=== PATIENT | male | born 1980 | race Caucasian/White ===

== ENCOUNTER 2021-01-02 14:00 | Emergency (ER) | payer MEDICARE, OTHER, SELFPAY ==
--- NOTE | 2021-01-02 14:05 | ED.BACK ---
HPI - Back Pain/Injury General Chief Complaint: Back Pain/Injury Stated Complaint: Back Pain Time Seen by Provider: 01/02/21 14:24 Source: patient and RN notes reviewed Mode of arrival: ambulatory Limitations: no limitations History of Present Illness HPI Narrative: 40-year-old male presents concern for right low back pain. Reports when he threw out trash yesterday he felt a twinge in his back and has been having pain since then. Reports dull ache with rest that increases with certain movements such as twisting. Reports pain radiates down the leg. Reports he is used icy hot, heat, ibuprofen, Tylenol, methocarbamol with no relief. Reports he takes methocarbamol daily for other problems. He denies loss of bowel or bladder function, perianal anesthesia, abdominal pain, fever, weakness in any extremity. He reports a history of a laminectomy in 2011. MD elicited complaint: back pain Related Data Home Medications Medication Instructions Recorded Confirmed methocarbamol 500 mg tablet 500 mg PO BID tablet 11/26/20 01/02/21 minocycline 100 mg capsule 100 mg PO BID 11/26/20 01/02/21 prazosin 2 mg capsule 2 mg PO QPM 11/26/20 01/02/21 ropinirole 2 mg tablet 2 mg PO QPM tablet 11/26/20 01/02/21 tadalafil 20 mg tablet 20 mg PO DAILY PRN 11/26/20 01/02/21 testosterone cypionate 200 mg/mL 200 mg IM ONCE 11/26/20 01/02/21 intramuscular oil zolpidem 10 mg tablet 10 mg PO QHS PRN 11/26/20 01/02/21 Allergies Allergy/AdvReac Type Severity Reaction Status Date / Time Sulfa (Sulfonamide Allergy Unknown Rash Verified 01/02/21 14:11 Antibiotics) Review of Systems Review of Systems: CONSTITUTIONAL: Denies malaise, chills, sweats, or fever. CARDIOVASCULAR: Denies chest pain, palpitations, or edema. RESPIRATORY: Denies cough or dyspnea. GASTROINTESTINAL: Denies abdominal pain, loss of bowel function GENITOURINARY: Denies loss of bladder function, perianal anesthesia SKIN: Denies open skin, redness, bruising, swelling MUSCULOSKELETAL: Reports low back pain NEUROLOGIC: Denies numbness, weakness, or headache. All systems reviewed & are unremarkable except as noted in HPI and below PMFSH Past Medical History Medical History Allergies Anxiety Insomnia Family History Family History Mother Family history of hypothyroidism Mother Thyroid disorder Social History Social History Smoking status: Former smoker Tobacco type: e-cigarettes/vaping Alcohol intake: never Comments At time of signature, agree with nursing past medical, surgical, social and family history. There is no relevant family history pertinent to the presenting complaint Exam Narrative: GENERAL: Well-appearing, well-nourished, and in no acute distress. HEAD: Normocephalic, atraumatic. EYES: PERRLA and EOMI. NECK: Supple. No lymphadenopathy. CHEST: Clear to auscultation. No respiratory distress. HEART: Regular rate and rhythm. Distal pulses palpable and equal, cap refill <3 seconds ABDOMEN: Soft, nontender, nondistended, normal active bowel sounds, no palpable or pulsatile masses. No CVA tenderness MUSCULOSKELETAL: Normal range of motion and strength in all extremities; 5/5 strength with hip flexion and extension, dorsiflexion and extension, knee flexion and extension, plantar flexion and extension. Normal sensation in dermatomal distributions with sensitivity to light touch and pain. No midline back tenderness to palpation. No paraspinal tenderness. Transfers from lying to sitting to standing. SKIN: Warm, dry, no rash. No ecchymosis, erythema, open wounds to back. NEURO: No focal deficits. Alert and oriented x3. Reflexes intact. Normal gait. PSYCH: Normal mood and affect Course Course Emergency Course: Patient is aware of diagnosis, understands and agrees to treatment plan. Sidney philippe
[2021-01-02 14:10] VITALS: BP 126/89; PULSE 67; RESP 16; TEMP 36.6; O2SAT 99
[2021-01-02] MEDS: KETOROLAC (*BKC) 60 MG/2 ML VIAL IM (14:31)
== END 2021-01-02 14:55 | disposition home or self-care (01) ==
PROVIDERS: Emergency Provider Nurse Practitioner; PCP Internal Medicine
DX: M54.50 Low back pain, unspecified (principal); Z87.891 Personal history of nicotine dependence
CPT/HCPCS: 96372; 99213; G0463; J1885

== ENCOUNTER → 2021-07-07 07:28 | Outpatient (CLI) | payer MEDICARE, OTHER, SELFPAY | PROVIDERS: PCP Internal Medicine; Visit Provider Family Medicine | DX: G47.00 Insomnia, unspecified (principal) | CPT/HCPCS: 99199 ==

== ENCOUNTER 2022-01-20 07:30 | Outpatient (CLI) | payer MEDICARE, OTHER, SELFPAY ==
--- NOTE | 2022-02-07 16:38 | WPDHOMESLEEP ---
Sleep Study - Home Unattended Date of Study: 01/20/22 Ordering Provider: Sarai Ramirez DO Interpreting Provider: Sarai Ramirez DO Home Sleep Study Type: Watch PAT Height: 1.83 m Weight: 104.326 kg Body Mass Index: 31.1 Neck Circumference (inches): 17.5 Brothers: 1 Reason for Sleep Study Insomnia and nightmare disorder Sleep History The patient is a 42-year-old male with depression, restless leg syndrome, nightmare disorder, PTSD, low testosterone and history of tobacco use that had a sleep study ordered for evaluation of his sleep issues. The patient rarely awakens from sleep short of breath. He rarely awakens at night with heartburn, belching or cough. He frequently snores loud enough that others complain. He constantly has trouble sleeping when he has a cold. He rarely wakes up gasping for air throughout the night. He denies having breathing problems at night observed by himself or others. He occasionally sweats excessively at night. He occasionally has heart palpitations or irregular heartbeats during the night. He denies falling asleep during the day and while driving. He rarely experiences loss of muscle tone when extremely emotional. He occasionally has trouble at school or work due to sleepiness. He denies having sleep paralysis. He frequently experiences vivid dreamlike scenes upon awakening or falling asleep. He constantly feels afraid of going asleep. He constantly has nightmares. He occasionally remembers his dreams. He occasionally has thoughts racing through his mind. He rarely feels sad or depressed. He frequently has anxiety. He constantly has muscular tension. He occasionally notices parts of his body jerk. He occasionally kicks during the night. He constantly has crawling and aching feelings in his legs and occasionally has leg pain during the night. He occasionally grinds his teeth during sleep but rarely awakens with morning jaw pain. He is frequently bothered by pain during the day but rarely awakened by pain during the night. He constantly wakes up feeling stiff in the morning. He frequently wakes up with sore or achy muscles. He occasionally wakes up with pain in the neck, spine or other joints. He goes to bed at 10:30 p.m. on weekdays and midnight on the weekends. It takes him 2 hours to fall asleep. He wakes up once throughout the night. When he awakens, he will get up and stretch. He is able to fall asleep within 10 minutes. He wakes up at 6:30 a.m. on weekdays and 9:30 a.m. on the weekends. He typically gets 4-6 hours of sleep per night. He will stay in bed for 20 minutes after waking up in the morning. He currently lives with his and 3 children. He does currently work [employer]. He does not consume any caffeinated beverages within 2 hours of bedtime. He does not engage in physical exercise before bedtime. Will read watch television before falling asleep. He does not take naps in the afternoon or evening. He drinks 3 caffeinated beverages per day. He quit smoking cigarettes 4 years ago. He denies alcohol and recreational drug use. [facility] Past Medical History Medical History Allergies Anxiety Insomnia Long-term current use of testosterone replacement therapy Rosacea Takes Minocycline Family History Family History Mother Family history of hypothyroidism Mother Thyroid disorder Social History Social History Smoking status: Former smoker Tobacco type: e-cigarettes/vaping Alcohol intake: never Medications Home Medications Medication Instructions Recorded Confirmed Type syringe with needle 3 mL 25 x 5/8 #100 ea 05/18/21 12/14/21 Rx (BD Luer-Romel Syringe) testosterone cypionate 200 mg/mL 200 mg IM WEEKLY #10 mL 05/19/21 12/14/21 Rx intramuscular oil needle (
[2022-02-07 16:53] VITALS: BMI 31.1
== END 2022-01-23 12:24 | disposition home or self-care (01) ==
LOC: ANHCSM 07:43
PROVIDERS: PCP Internal Medicine; Visit Provider Family Medicine
DX: G47.00 Insomnia, unspecified (principal)
CPT/HCPCS: 95800

== ENCOUNTER 2022-03-01 10:43 | Outpatient (CLI) | payer MEDICARE, OTHER, SELFPAY ==
[2022-03-01 18:49] LABS: Basophils Absolute Auto 0.1 K/mm3 (0.0-0.1); Basophils Percent Auto 0.7 % (0.2-1.2); Eosinophils Absolute Auto 0.1 K/mm3 (0-0.3); Eosinophils Percent Auto 1.6 % (0-4.4); Hematocrit 51.8 % (42.0-52.0); Hemoglobin 16.6 g/dL (14.0-18.0); Immature Granulocyte Absolute 0.03 K/mm3 (0.00-0.031); Immature Granulocyte Percent A 0.3 % (0-0.5); Lymphocytes Absolute Auto 2.11 K/mm3 (0.9-3.2); Lymphocytes Percent Auto 24.4 % (18.3-44.2); Mean Corpuscular Hemoglobin 28.7 pg (26-34); Mean Corpuscular Volume 89.5 fl (80-100); Mean Platelet Volume 9.9 fl (7.4-10.4); Monocytes Absolute Auto 0.7 K/mm3 (0.1-0.6); Monocytes Percent Auto 8.1 % (2.6-8.5); Neutrophils Absolute Auto 5.6 K/mm3 (1.3-6.7); Neutrophils Percent Auto 64.9 % (45.5-73.1); Platelet Count Result 304 k/mm3 (150-375); Red Blood Count 5.79 M/mm3 (4.6-6.20); Red Cell Distribution Width 13.2 % (11.5-14.5); White Blood Count 8.6 K/mm3 (4.5-10.0)
[2022-03-01 19:46] LABS: Cholesterol 185 mg/dL (0-200); HDL Direct 35 mg/dL; Triglycerides 169 mg/dL (<150)
[2022-03-01 19:57] LABS: LDL Cholesterol Direct 108 mg/dL
[2022-03-02 03:43] LABS: Hemoglobin A1C 5.4 % (<5.7)
[2022-03-02 17:55] LABS: Alanine Aminotransferase 32 U/L (6-50); Albumin Level 4.5 g/dL (3.5-5.1); Alkaline Phosphatase 64 U/L (38-126); Anion Gap 9 mmol/L (8-16); Aspartate Amino Transferase 34 U/L (17-59); Bilirubin,Total 0.5 mg/dL (0.2-1.3); Blood Urea Nitrogen 22 mg/dL (9-20); Calcium 8.9 mg/dL (8.4-10.2); Carbon Dioxide 27 mmol/L (22-30); Chloride 102 mmol/L (98-107); Estimated Glomerular Filt Rate > 60; Glucose 84 mg/dL (65-110); Potassium 4.4 mmol/L (3.4-5.0); Sodium 138 mmol/L (137-145)
[2022-03-07 12:37] LABS: Testosterone Free 23.9 pg/mL (35.0-155.0); Testosterone Total 159 ng/dL (250-1100)
== END 2022-03-01 10:44 | disposition home or self-care (01) ==
LOC: ANHGOSHLAB 10:46
PROVIDERS: PCP Internal Medicine; Visit Provider Nurse Practitioner
DX: R73.9 Hyperglycemia, unspecified (principal); Z79.890 Hormone replacement therapy; Z12.5 Encounter for screening for malignant neoplasm of prostate; G25.81 Restless legs syndrome; Z13.220 Encounter for screening for lipoid disorders
CPT/HCPCS: 36415; 80053; 80061; 82728; 83036; 84153; 84402; 84403; 85025; G0103

== ENCOUNTER 2022-09-14 09:19 | Outpatient (CLI) | payer MEDICARE, OTHER, SELFPAY ==
[2022-09-14 19:26] LABS: Alanine Aminotransferase 31 U/L (6-50); Albumin Level 4.3 g/dL (3.5-5.1); Alkaline Phosphatase 57 U/L (38-126); Anion Gap 5 mmol/L (8-16); Aspartate Amino Transferase 41 U/L (17-59); Bilirubin,Total 0.8 mg/dL (0.2-1.3); Blood Urea Nitrogen 17 mg/dL (9-20); Carbon Dioxide 29 mmol/L (22-30); Chloride 104 mmol/L (98-107); Estimated Glomerular Filt Rate > 60; Glucose 78 mg/dL (65-110); Potassium 4.2 mmol/L (3.4-5.0); Sodium 138 mmol/L (137-145)
[2022-09-14 19:30] LABS: Basophils Absolute Auto 0.1 K/mm3 (0.0-0.1); Basophils Percent Auto 0.8 % (0.2-1.2); Eosinophils Absolute Auto 0.3 K/mm3 (0-0.3); Eosinophils Percent Auto 3.6 % (0-4.4); Hematocrit 49.6 % (42.0-52.0); Hemoglobin 16.3 g/dL (14.0-18.0); Immature Granulocyte Absolute 0.02 K/mm3 (0.00-0.031); Immature Granulocyte Percent A 0.3 % (0-0.5); Lymphocytes Absolute Auto 2.02 K/mm3 (0.9-3.2); Lymphocytes Percent Auto 27.7 % (18.3-44.2); Mean Corpuscular HGB Conc 32.9 g/dl (32-36); Mean Corpuscular Volume 88.1 fl (80-100); Mean Platelet Volume 10.2 fl (7.4-10.4); Monocytes Absolute Auto 0.7 K/mm3 (0.1-0.6); Neutrophils Absolute Auto 4.2 K/mm3 (1.3-6.7); Neutrophils Percent Auto 57.6 % (45.5-73.1); Platelet Count Result 281 k/mm3 (150-375); Red Blood Count 5.63 M/mm3 (4.6-6.20); White Blood Count 7.3 K/mm3 (4.5-10.0)
[2022-09-14 19:54] LABS: Prostate Specific Antigen 0.8 ng/mL (< OR = 4.0)
[2022-09-21 11:43] LABS: Testosterone Total 801 ng/dL (250-1100)
[2022-09-22 02:34] LABS: Estradiol, Ultrasensitive 57 pg/mL (< OR = 29)
== END 2022-09-14 09:20 | disposition home or self-care (01) ==
LOC: ANHGOSHLAB 09:21
PROVIDERS: PCP Internal Medicine; Visit Provider Nurse Practitioner
DX: R79.89 Other specified abnormal findings of blood chemistry (principal); Z79.890 Hormone replacement therapy; Z12.5 Encounter for screening for malignant neoplasm of prostate
CPT/HCPCS: 36415; 80053; 82670; 84153; 84402; 84403; 85025; G0103

== ENCOUNTER 2023-10-09 09:30 | Outpatient (CLI) | payer MEDICARE, OTHER, SELFPAY ==
[2023-10-09 13:12] LABS: Basophils Absolute Auto 0.1 K/mm3 (0.0-0.1); Basophils Percent Auto 0.6 % (0.2-1.2); Eosinophils Absolute Auto 0.5 K/mm3 (0-0.3); Eosinophils Percent Auto 6.3 % (0-4.4); Hematocrit 48.6 % (42.0-52.0); Hemoglobin 15.9 g/dL (14.0-18.0); Immature Granulocyte Absolute 0.03 K/mm3 (0.00-0.031); Immature Granulocyte Percent A 0.4 % (0-0.5); Lymphocytes Absolute Auto 2.09 K/mm3 (0.9-3.2); Lymphocytes Percent Auto 26.3 % (18.3-44.2); Mean Corpuscular HGB Conc 32.7 g/dl (32-36); Mean Corpuscular Hemoglobin 28.5 pg (26-34); Mean Corpuscular Volume 87.1 fl (80-100); Mean Platelet Volume 9.6 fl (7.4-10.4); Monocytes Absolute Auto 0.7 K/mm3 (0.1-0.6); Monocytes Percent Auto 8.5 % (2.6-8.5); Neutrophils Absolute Auto 4.6 K/mm3 (1.3-6.7); Neutrophils Percent Auto 57.9 % (45.5-73.1); Platelet Count Result 305 k/mm3 (150-375); Red Blood Count 5.58 M/mm3 (4.6-6.20); Red Cell Distribution Width 13.3 % (11.5-14.5)
[2023-10-09 13:25] LABS: Alanine Aminotransferase 24 U/L (6-50); Albumin Level 4.6 g/dL (3.5-5.1); Alkaline Phosphatase 56 U/L (38-126); Anion Gap 10 mmol/L (4-12); Aspartate Amino Transferase 48 U/L (17-59); Bilirubin,Total 0.6 mg/dL (0.2-1.3); Blood Urea Nitrogen 18 mg/dL (9-20); Calcium 9.1 mg/dL (8.4-10.2); Carbon Dioxide 27 mmol/L (22-30); Chloride 101 mmol/L (98-107); Cholesterol 203 mg/dL (0-200); Estimated Glomerular Filt Rate > 60; Glucose 77 mg/dL (65-110); HDL Direct 37 mg/dL; Sodium 138 mmol/L (137-145); Triglycerides 204 mg/dL (<150)
[2023-10-09 13:40] LABS: LDL Cholesterol Direct 127 mg/dL
[2023-10-09 13:51] LABS: Prostate Specific Antigen 1.1 ng/mL (< OR = 4.0)
[2023-10-12 17:12] LABS: Testosterone Free 51.6 pg/mL (35.0-155.0); Testosterone Total 343 ng/dL (250-1100)
== END 2023-10-09 09:31 | disposition home or self-care (01) ==
LOC: ANHGOSHLAB 09:32
PROVIDERS: PCP Internal Medicine; Visit Provider Internal Medicine
DX: R79.89 Other specified abnormal findings of blood chemistry (principal); Z12.5 Encounter for screening for malignant neoplasm of prostate; Z13.220 Encounter for screening for lipoid disorders; Z79.890 Hormone replacement therapy; Z79.899 Other long term (current) drug therapy
CPT/HCPCS: 36415; 80053; 80061; 84153; 84402; 84403; 85025; G0103

== ENCOUNTER 2024-12-03 08:33 | Outpatient (CLI) | payer MEDICARE, OTHER, SELFPAY ==
--- OUTSIDE RECORDS SUMMARY | 2024-12-03 02:01 | XMS_ITS ---
Author Organization [facility] Allergies Not Yet Asked Medications No Information Problems Problem Status Assessment and P bernabe No Known Problems History of Procedures Order Codes Created Status No known procedures Results Tests Date Results Flag Units Reference Interval No Results Within Months MENTAL STATUS No information Family History No Known Family History Social History Social History Observation Description Dates Observed Smoking Status Unknown if ever smoked Social Data No Known Social Data Immunizations Vaccine Date Status Unknown immunization status 12/03/2024 Comp leted Plan of Treatment Health Screenings Date Goal Action Comments June 25, 2023 Colon cancer screening Fecal immunochem ical test (FIT) September 27, 2024 Depression screening PHQ-2 Insurance Providers Payer name Policy type / Coverage type Policy ID Covered democrat ID Policy Pop Unknown Other Unknown Self
--- OUTSIDE RECORDS SUMMARY | 2024-12-03 09:01 | XMS_ITS | Encounter Summary ---
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
--- OUTSIDE RECORDS SUMMARY | 2024-12-03 09:01 | XMS_ITS | Clinical Summary ---
Author Organization [facility] [address] Address [address] [place] [id number] Care Team Providers Care It Infrastructure Project Manager Name Role Phone Too Rios DO Primary Care Provider [phone] Allergies Active Allergy Reactions Criticality Noted Date Comments Sulfa (Sulfonamide Antibiotics) Rash Medium 03/26 Medications diazePAM (VALIUM) 5 mg tablet Take 5 mg by mouth 2 (two) times a day as needed Active ketorolac (TORADOL) 10 mg tablet TAKE 1 TABLET BY MOUTH EVERY 6 HOURS FOR 5 DAYS NEEDED FOR PAIN 1 Active Hypodermic [place] 18 gauge x 1 1/2 needle USE DIRECTED TO DRAW UP TESTOSTERONE 1 Active BD Luer-Romel Syringe 3 mL 25 x 1 1/2 syringe USE DIRECTED TO INJECT TESTOSTERONE 1 Active testosterone cypionate (DEPO-TESTOTERO NE) 200 mg/mL injection ADMINISTER 1 ML IN THE MUSCLE WEEKLY 1 Active zolpidem (AMBIEN) 10 mg tablet Take 10 mg by mouth nightly as needed 1 Active Active Problems No known active problems Surgical History Surgery Date Site/Laterality Comments BACK SURGERY 03/26/2011 - 03/25/2012 Medical History Medical History Date Comments PTSD (post-traumatic stress disorder) Family History Medical History Relation Name Comments Thyroid disease Mother Relation Name Status Comments Mother Alive Social History Tobacco Use Types Packs/Day Years Used Date Smoking Tobacco: Never Smokeless Tobacco: Never AUDIT-C Answer Date Recorded Q1: How often do you have a drink containing alc ohol? 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 Gender Identity Not on file Sexual Orientation Not on file Obstetrics History Last Filed Vital Signs Vital Sign Reading Time Taken Comments Blood Pressure 130/85 02/20/2022 12:29 PM PAPER SEALER Pulse 68 02/20/2022 12:29 PM PAPER SEALER Temperature 36.8 C (98.3 F) 02/20/2022 12:29 PM PAPER SEALER Respiratory Rate 16 02/20/2022 12:29 PM PAPER SEALER Oxygen Saturation 99% 02/20/2022 12:29 PM PAPER SEALER Inhaled Oxygen Concentration - - Weight 102.1 kg (225 lb) 02/20/2022 12:29 PM PAPER SEALER Height 182.9 cm (6') 02/20/2022 12:29 PM PAPER SEALER Body Mass Index 30.52 02/20/2022 12:29 PM PAPER SEALER Plan of Treatment Health Maintenance Due Date Last Done Comments Colon Cancer Screening-Colonoscopy 1978 Depression Screening 1978 Hepatitis C Screening 1978 Hepatitis B Screening 01/12/1996 Regular Well Visit/Exam 18-64 01/12/1996 Covid-19 Vaccine ( season) 2024 02/19/2021 Influenza Vaccine (#1) 2024 , 12/31/2019, 02/28/2019, Additional history exists DTaP/Tdap/Td Vaccine (7 - Td or Tdap) 09/21/2027 09/20/2017, 04/27/2013, 09/30/1991, Additional history exists Pneumococcal vaccine <65 Aged Out 05/06/2013 No longer eligible based on patient's age to complete this topic HPV Vaccines Aged Out No longer eligi ble based on patient's age to complete this topic Insurance MEDICARE [facility] Care Teams It Infrastructure Project Manager Relationship Specialty Start Date End Date Too Rios DO PCP - General Internal Medicine 04/09/21
--- OUTSIDE RECORDS SUMMARY | 2024-12-03 09:01 | XMS_ITS | Clinical Summary ---
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 Gender Identity Not on file Sexual Orientation Not on file Plan of Treatment Health Maintenance Due Date Last Done Comments Colorectal Cancer Screening Colonoscopy (10 Years) 1978 Annual Physical 1981 Hepatitis C 01/12/1996 DTaP, Tdap and Td Vaccines ( 1 - Tdap) 1997 Hepatitis B Vaccines (1 of 3 - 19+ 3-dose series) 1997 COVID-19 Vaccine ( - 2023-2 5 season) 2024 Meningococcal B Vaccine Aged Out No l onger eligible based on patient's age to complete this topic Meningococcal Vaccine Aged Out No abbey deborah eligible based on patient's age to complete this topic Pneumococcal Vaccine: Pediat rics (0 to 5 Years) and At-Risk Patients (6 to 49 Years) Aged Out No longer eligible b ased on patient's age to complete this topic RSV Immunizations Under 20 Months Aged Out No longer eligible based on patient's age to complete this topic
[2024-12-03 12:52] LABS: Hematocrit 51.6 % (42.0-52.0); Hemoglobin 16.8 g/dL (14.0-18.0); Immature Granulocyte Percent A 0.3 % (0-0.5); Lymphocytes Absolute Auto 1.70 K/mm3 (0.9-3.2); Mean Corpuscular HGB Conc 32.6 g/dl (32-36); Mean Corpuscular Hemoglobin 28.4 pg (26-34); Mean Corpuscular Volume 87.3 fl (80-100); Nucleated Red Blood Cells Absolute Auto 0.000 K/mm3 (0.0-0.012); Nucleated Red Blood Cells Perc 0.0 % (0.0-0.2); Platelet Count Result 295 k/mm3 (150-375); Red Blood Count 5.91 M/mm3 (4.6-6.20); White Blood Count 7.3 K/mm3 (4.5-10.0)
[2024-12-03 12:59] LABS: Alanine Aminotransferase 24 U/L (6-50); Albumin Level 4.3 g/dL (3.5-5.1); Alkaline Phosphatase 60 U/L (38-126); Anion Gap 9 mmol/L (4-12); Aspartate Amino Transferase 58 U/L (17-59); Bilirubin,Total 0.9 mg/dL (0.2-1.3); Blood Urea Nitrogen 18 mg/dL (9-20); Calcium 9.2 mg/dL (8.4-10.2); Carbon Dioxide 27 mmol/L (22-30); Chloride 103 mmol/L (98-107); Cholesterol 193 mg/dL (0-200); Estimated Glomerular Filt Rate > 60; Glucose 78 mg/dL (65-110); HDL Direct 37 mg/dL; Potassium 4.0 mmol/L (3.4-5.0); Sodium 139 mmol/L (137-145); Total Protein 7.4 g/dL (6.3-8.2); Triglycerides 243 mg/dL (<150)
[2024-12-03 13:34] LABS: Prostate Specific Antigen 1.3 ng/mL (< OR = 4.0)
[2024-12-11 00:07] LABS: Free Testosterone (Direct) 17.3 pg/mL (6.8-21.5)
== END 2024-12-03 08:34 | disposition home or self-care (01) ==
LOC: ANHGOSHLAB 08:34
PROVIDERS: PCP Internal Medicine; Visit Provider Internal Medicine
DX: R79.89 Other specified abnormal findings of blood chemistry (principal); Z79.890 Hormone replacement therapy; Z12.5 Encounter for screening for malignant neoplasm of prostate
CPT/HCPCS: 36415; 80053; 80061; 84153; 84402; 84403; 85025; G0103